=== PATIENT | male | born 1940 | race Caucasian/White ===

== ENCOUNTER 2024-02-06 08:08 | Outpatient (CLI) | payer MEDICARE, OTHER | END 2024-02-06 08:09 | disposition home or self-care (01) | LOC: CSHWCC 08:08 | PROVIDERS: ATTEND Nurse Practitioner Family | DX: T24.211D Burn of second degree of right thigh, subsequent encounter (principal); T24.222D Burn of second degree of left knee, subsequent encounter; T24.231D Burn of second degree of right lower leg, subsequent encounter | CPT/HCPCS: 97597; 97598; G0463; 99214 ==

== ENCOUNTER 2024-02-13 08:14 | Outpatient (CLI) | payer MEDICARE, OTHER | END 2024-02-13 08:15 | disposition home or self-care (01) | LOC: CSHWCC 08:14 | PROVIDERS: ATTEND Nurse Practitioner Family | DX: T24.211D Burn of second degree of right thigh, subsequent encounter (principal); T24.222D Burn of second degree of left knee, subsequent encounter; T24.231D Burn of second degree of right lower leg, subsequent encounter | CPT/HCPCS: 11042; 11045 ==

== ENCOUNTER 2024-02-20 08:42 | Outpatient (CLI) | payer MEDICARE, OTHER | END 2024-02-20 08:43 | disposition home or self-care (01) | LOC: CSHWCC 08:42 | PROVIDERS: ATTEND Nurse Practitioner Family | DX: T24.211D Burn of second degree of right thigh, subsequent encounter (principal); T24.222D Burn of second degree of left knee, subsequent encounter; T24.231D Burn of second degree of right lower leg, subsequent encounter | CPT/HCPCS: 11042; 11045 ==

== ENCOUNTER 2024-03-06 08:59 | Outpatient (CLI) | payer MEDICARE, OTHER | END 2024-03-06 09:00 | disposition home or self-care (01) | LOC: CSHWCC 08:59 | PROVIDERS: ATTEND Nurse Practitioner Family | DX: T24.211D Burn of second degree of right thigh, subsequent encounter (principal); T24.222D Burn of second degree of left knee, subsequent encounter; T24.231D Burn of second degree of right lower leg, subsequent encounter | CPT/HCPCS: 11042; 11045 ==

== ENCOUNTER 2024-03-12 10:08 | Outpatient (CLI) | payer MEDICARE, OTHER | END 2024-03-12 10:09 | disposition home or self-care (01) | LOC: CSHWCC 10:08 | PROVIDERS: ATTEND Nurse Practitioner Family | DX: T24.211D Burn of second degree of right thigh, subsequent encounter (principal); T24.222D Burn of second degree of left knee, subsequent encounter; T24.231D Burn of second degree of right lower leg, subsequent encounter ==

== ENCOUNTER 2024-03-19 10:14 | Outpatient (CLI) | payer MEDICARE, OTHER | END 2024-03-19 10:15 | disposition home or self-care (01) | LOC: CSHWCC 10:14 | PROVIDERS: ATTEND Nurse Practitioner Family | DX: T24.211D Burn of second degree of right thigh, subsequent encounter (principal); T24.222D Burn of second degree of left knee, subsequent encounter; T24.231D Burn of second degree of right lower leg, subsequent encounter | CPT/HCPCS: 11042; 11045 ==